=== PATIENT | male | born 1955 | race Caucasian/White ===

== ENCOUNTER 2025-02-04 16:05 | Emergency (ER) | payer MEDICARE, SELFPAY ==
[2025-02-04 16:07] VITALS: BP 197/91
--- NOTE | 2025-02-04 17:44 | ED.GENMED ---
History of Present Illness
General
Chief Complaint: Weakness
Source: patient
Exam Limitations: none
Time Seen by Provider: 02/04/25 17:28
History of Present Illness
History of Present Illness:
See MDM
Past History
Past History
ED Past Medical History: CAD and HTN
ED Past Surgical History: Other (Agree with documented past surgical history)
Social History
Tobacco: Non-smoker
Alcohol: Occasional
Drug: None
Personal:
Living: with family
Employment: Employed
Family History
Family History: CAD
Phy Exam
Physical Exam
Physical Exam:
See MDM
Course
Orders/Labs/Results
Orders:
Orders
02/04/25 16:06
Electrocardiogram (*1) Urgent
Reason for Study: Palpitations
EKG- Treatment ONCE
02/04/25 18:13
Complete Blood Count/With Diff Urgent
Comprehensive Metabolic Panel Urgent
Troponin I Urgent
Abnormal Lab Results
02/04/25
18:13
RBC 4.67 L 10^6/uL
(4.70-6.10)
Hct 38.7 L %
(39.0-52.0)
RDW 15.1 H %
(11.5-14.5)
Absolute Monos (auto) 0.7 H 10^3/uL
(0.1-0.6)
Monocytes % 9.9 H %
(1.7-9.3)
Glucose 100 H mg/dl
(70-99)
02/04/25 18:13
02/04/25 18:13
Vital Signs
Initial and Last Documented VS:
Initial Vital Signs
Temp Pulse Resp BP Pulse Ox
98.9 F 83 18 197/91 98
02/04/25 16:07 02/04/25 16:07 02/04/25 16:07 02/04/25 16:07 02/04/25 16:07
Last Documented Vital Signs
Temp Pulse Resp BP Pulse Ox
98.9 F 68 18 162/81 98
02/04/25 16:07 02/04/25 18:20 02/04/25 18:11 02/04/25 18:11 02/04/25 18:21
MDM/Problems Addressed
Differential Diagnosis Includes:
Note:
CHIEF COMPLAINT(S)
Shortness of breath, elevated blood pressure, leg cramps, and back pain.
HISTORY OF PRESENT ILLNESS
The patient is a 69-year-old male with a history of coronary artery disease, presenting with symptoms over the past three days. He reports experiencing high blood pressure readings at home, reaching as high as 165/100 mmHg. The patient has been
experiencing leg cramps, back pain, and dyspnea on exertion, noting that he feels winded even with minimal activity around the house. He reports that sitting or rising from a seated position aggravates his symptoms, particularly experiencing cramps
along his back. He feels facial flushing and warmth without exertion, yet describes no notable heart complications at rest.
The patient recalled a previous episode necessitating stent placement, documented as symptomatic upon physical exertion, especially noticeable at a heart rate above 120 beats per minute. Currently, the patient has not been engaging in exercise,
citing recent lethargy. He has an existing coronary artery stent and follows up with his alternative financing specialist, Dr. Shiv Urbano from [facility]. The patient is currently on aspirin and several antihypertensive medications. He
acknowledges family pressure as a reason for todays visit.
ADDITIONAL HISTORY OBTAINED FROM SOURCES OTHER THAN THE PATIENT
The patients urged him to seek medical attention due to concerns about his symptom presentation.
CHRONIC MEDICAL CONDITIONS SIGNIFICANTLY AFFECTING CARE
Coronary artery disease with history of stent placement.
SOCIAL DETERMINANTS AFFECTING HEALTH
The patient is working part-time and attributes some symptoms to stress.
FAMILY HISTORY
The patient noted a significant family history of heart disease involving his father and grandfather.
MEDICATIONS
- Aspirin
- Multiple antihypertensive medications
REVIEW OF SYSTEMS
- Cardiovascular: High blood pressure, dyspnea on exertion with recent activities, facial flushing
- Musculoskeletal: Leg cramps, back pain
- Neurological: No mention of headaches or dizziness
- Respiratory: Occasional shortness of breath without significant cough
PHYSICAL EXAM
General: Well appearing and non-toxic
HEENT: protecting airway
Neck: appears supple
CV: No evidence of cyanosis. Regular rate and rhythm
Resp: No accessory muscle use. Lungs clear
Abd: Non-distended
Extremities: No deformities. No leg edema
Neuro: alert
Psych: Normal affect
Skin: Intact
Nursing notes reviewed and vital signs reviewed.
PLAN
- Conduct an Electrocardiogram (ECG).
- Perform blood tests to evaluate heart function and assess for potential electrolyte imbalances.
- Monitor symptoms and consider follow-up with alternative financing specialist to evaluate for potential recurrent stenosis.
- Ensure follow-up with cardiology, particularly if tests show abnormalities.
DIFFERENTIAL DIAGNOSIS
The Differential Diagnosis includes, in no particular order and is not limited to:
1. Coronary artery disease
2. Hypertension
3. Angina pectoris
4. Congestive heart failure
5. Pulmonary hypertension
6. Aortic stenosis
7. Pericarditis
8. Myocardial infarction
9. Electolyte imbalances
10. Deconditioning or detraining effect
DIAGNOSIS
- Cramping (ICD-10 Code: M79.602)
- Dyspnea
SUMMARY OF ENCOUNTER
The patient, a 69-year-old male with a history of coronary artery disease and stent placement, presented with shortness of breath, elevated blood pressure, leg cramps, and back pain for the past three days. He reported feeling winded with minimal
activity and experienced high blood pressure readings, reaching as high as 165/100 mmHg at home. Physical examination revealed no immediate cardiovascular abnormalities, but ECG and blood work were planned. The patient was encouraged by his to
seek medical attention due to these symptoms.
REASSESSMENT
Upon multiple reassessments, the patient appeared non-toxic and reported feeling better.
FOLLOW-UP INSTRUCTIONS
The patient was advised to contact his alternative financing specialist and PCP the following day to evaluate his symptoms and manage his blood pressure.
MEDICATION RECONCILIATION
- Aspirin
- Multiple antihypertensive medications
MEDICAL DECISION MAKING
Number and Complexity of Problems Addressed:
The patients symptoms and chronic coronary artery disease, combined with recent elevated blood pressure and exertional dyspnea, created a complex scenario requiring careful monitoring and investigation.
Data:
The diagnostic plan included ECG and blood work to address the differential diagnosis and guide appropriate treatment.
Risk:
The patients symptoms, exacerbated by potential stress-related social determinants, such as family pressure and work-related stress, necessitated consideration of hospital admission and comprehensive outpatient follow-up.
*Critical Care Note
Total Time (30-74mins, 75-104mins- exclusive of procedures): Not Applicable
ED Attending Note
-
Portions of this chart may have been created with voice recognition software.� Occasional wrong word or��sound alike� substitutions may have occurred due to the inherent limitations of voice recognition software.
Discharge Plan
Departure
Patient Disposition: Home (Routine Discharge)
Date of Disposition: 02/04/25
Time of Disposition: 19:14
Patient with high blood pressure during this ER visit?: Yes
Discharge Problem:
Dyspnea
Instructions: Shortness of breath, BLOOD PRESSURE
Prescriptions:
No Action
lisinopril 10 MG tablet
20 mg PO DAILY
ezetimibe-simvastatin [Vytorin 10-20] 1 EACH tablet
1 tab PO TUTHSA
omega 4-omi-xgu-fish oil [Fish Oil] 1 EACH capsule
2 cap PO DAILY
metoprolol succinate 50 MG tablet extended release 24 hr
50 mg PO DAILY
aspirin 81 MG tablet,delayed release (DR/EC)
81 mg PO DAILY
omeprazole 20 MG capsule,delayed release(/CHAVEZ)
20 mg PO DAILY
zolpidem 10 MG tablet
10 mg PO HS
Patient Comments:
04/05/2020-patient picked up on 02/02/2020
sertraline 50 MG tablet
50 mg PO DAILY
diazepam 5 MG tablet
5 mg PO BIDPRN PRN (Reason: aniexty)
Patient Comments:
04/05/2020- patient picked up on 02/16/2020
tadalafil [Cialis] 20 MG tablet
20 mg PO DAILYPRN PRN (Reason: sexual activity)
tramadol 50 MG tablet
50 mg PO Q6HPRN PRN (Reason: pain) Qty: 15 0RF
Referrals:
Jovan Seymour MD [Family Provider, Family Practice]
Activity Restrictions/Additional Instructions:
Please return for any worsening symptoms.
You may return at any time if you have further concerns.
Please follow up with your doctor at the first available appointment, preferably this week. Please discuss your blood pressure.
Please call your alternative financing specialist tomorrow and explain your symptoms. Please make an appointment for the earliest availability.
Thank you for choosing [facility].
Interventions
Interventions:
*Risk Screen - Suicide Last Done: 02/04/25 16:07
*General Assessment Last Done: 02/04/25 16:07
*Neglect/Abuse Screening Last Done: 02/04/25 18:21
*ED- Fall Risk Assessment Last Done: 02/04/25 18:20
*ED COVID-19 Vaccine History Last Done: 02/04/25 18:41
ED- Cardiac Assessment Last Done: 02/04/25 18:21
ED- Neurological Assessment Last Done: 02/04/25 18:21
ED- Pulmonary Assessment Last Done: 02/04/25 18:21
Discharge Date and Time
Print Language: ITALIAN
[2025-02-04 18:05] VITALS: BMI 29.3
[2025-02-04 18:11] VITALS: BP 162/81
[2025-02-04 18:20] LABS: % Basophils 0.4 % (0-2); % Eosinophils 1.2 % (0-6); % Immature Granulocytes 0.3 % (0-0.5); % Lymphocytes 24.7 % (20.5-51.1); % Monocytes 9.9 % (1.7-9.3); % Neutrophils 63.5 % (42.2-75.2); Absolute Eosinophils 0.1 10^3/uL (0-0.7); Absolute Lymphocytes 1.7 10^3/uL (1.2-3.4); Absolute Monocytes 0.7 10^3/uL (0.1-0.6); Absolute Neutrophils 4.2 10^3/uL (1.4-6.5); Hematocrit 38.7 % (39.0-52.0); Mean Corp Hgb Conc. 33.6 g/dL (33.0-37.0); Mean Corpuscular Hgb 27.8 pg (27.0-31.0); Mean Corpuscular Volume 82.9 fL (80.0-94.0); Mean Platelet Volume 9.8 fL (7.4-10.4); Nucleated Red Blood Cells % 0 % (-); Platelet Count 193 10^3/uL (130-400); Red Blood Cell Count 4.67 10^6/uL (4.70-6.10); Red Cell Dist. Width 15.1 % (11.5-14.5); White Blood Cell Count 6.7 10^3/uL (4.8-10.8)
[2025-02-04 18:41] LABS: ALT (SGPT) 41 U/L (0-50); AST (SGOT) 40 U/L (17-59); Albumin 4.8 g/dl (3.5-5.0); Alkaline Phosphatase 43 U/L (38-126); Blood Urea Nitrogen 17 mg/dl (9-20); Calcium 9.7 mg/dl (8.4-10.2); Carbon Dioxide 28 mmol/L (22-30); Chloride 102 mmol/L (98-107); Estimated Creatinine Clearance 92 ml/min; Glucose 100 mg/dl (70-99); Potassium 4.4 mmol/L (3.5-5.1); Sodium 139 mmol/L (135-145); Total Bilirubin 0.7 mg/dl (0.2-1.3); Total Protein 8.1 g/dl (6.3-8.2); eGFR > 60.00
[2025-02-04 19:00] LABS: Troponin I 0.014 ng/ml
[2025-02-04 19:22] VITALS: BP 165/81
== END 2025-02-04 19:23 | disposition home or self-care (01) ==
LOC: EMR 16:05
PROVIDERS: EMERGENCY PHYSICIAN Student in an Organized Health Care Education/Training Program; FAMILY PHYSICIAN Family Medicine
DX: R06.00 Dyspnea, unspecified (principal); R25.2 Cramp and spasm; I10 Essential (primary) hypertension; I25.10 Atherosclerotic heart disease of native coronary artery without angina pectoris; Z95.5 Presence of coronary angioplasty implant and graft; Z79.82 Long term (current) use of aspirin; Z79.899 Other long term (current) drug therapy
CPT/HCPCS: 99284; 80053; 84484; 85025; 93005